=== PATIENT | male | born 1965 | race African-American/Black ===

== ENCOUNTER 2017-01-22 00:39 | Emergency (ER) | payer SELFPAY ==
[~2017-01-22] VITALS: Ht 180.3 cm; Wt 100.0 kg
[2017-01-22 01:26] LABS: AUTOMATED NEUTROPHIL # 6.2 TH/MM3 (1.8-7.7); BASOPHIL # 0.1 TH/MM3 (0-0.2); EOSINOPHIL # 0.2 TH/MM3 (0-0.4); EOSINOPHIL % 1.9 % (0.0-4.0); HEMO FLAGS DIFF FINAL; LYMPH % 29.4 % (9.0-44.0); MEAN CELL VOLUME 85.1 FL (80.0-100.0); MEAN CORPUSCULAR HEMOGLOBIN 28.9 PG (27.0-34.0); MEAN CORPUSCULAR HGB CONC 33.9 % (32.0-36.0); MONO % 7.4 % (0.0-8.0); NEUT % 60.3 % (16.0-70.0); PLATELET COUNT 247 TH/MM3 (150-450); RED BLOOD COUNT 5.05 MIL/MM3 (4.50-5.90); RED CELL DISTRIBUTION WIDTH 13.8 % (11.6-17.2); WHITE BLOOD COUNT 10.3 TH/MM3 (4.0-11.0)
--- NOTE | 2017-01-22 01:35 | PD ---
HPI Chief Complaint: Complaint Time Seen by Provider: 01:11 Travel History International Travel<30 days: No Contact w/Intl Traveler<30days: No Traveled to known affect area: No History of Present Illness HPI The patient is a 51 year old male who presents to the [facility] emergency department with a history of pain in the left side of the abdomen that began 24 hours ago while riding his bike. He reports that the pain was subtle up first. He denies having any history of trauma to the area. He reports that the pain is made worse with palpating the left side of his scrotum. He denies having any scrotal pain or swelling. Today he developed hematuria. He denies dysuria, urinary frequency, or urinary urgency. He denies any history of kidney stones. The patient denies having any new sexual partners or concerns about sexual transmitted infections. He denies having any penile discharge. On review of systems, he denies any recent fevers, neck pain, chest pain, shortness of breath , vomiting, diarrhea, or neurologic symptoms. He has had cold symptoms with cough and congestion for the last 3 days. [facility] Past Medical History Narrative Medical The patient's past medical history is significant for sciatica, hypertension. The patient reports they he stopped taking his blood pressure medication a year ago. Diminished Hearing: No Hypertension: Yes Tetanus Vaccination: Unknown Influenza Vaccination: No Past Surgical History Narrative Surgical The patient's past surgical history is significant for facial surgery for an abscess. Surgical History: No Previous Surgery Social History Alcohol Use: Yes (rare) Tobacco Use: No Substance Use: No Allergies-Medications (Allergen,Severity, Reaction): Coded Allergies: No Known Allergies (Unverified , 01/22/17) Reported Meds & Prescriptions Reported Meds & Active Scripts Active EC-Naprosyn (Naproxen) 500 Mg Tabdr 500 Mg PO BID PRN Cipro (Ciprofloxacin HCl) 500 Mg Tab 500 Mg PO BID 10 Days Review of Systems Except as stated in HPI: all other systems reviewed are Neg General / Constitutional: No: Fever Eyes: No: Visual changes HENT: No: Headaches Cardiovascular: No: Chest Pain or Discomfort Respiratory: No: Shortness of Breath Gastrointestinal: Positive: Abdominal Pain, No: Nausea, Vomiting, Diarrhea, Changes in Bowel Habits, Indigestion, Loss of Appetite Genitourinary: Positive: Hematuria, No: Urgency, Frequency, Dysuria Musculoskeletal: No: Pain Skin: No Rash Neurologic: No: Weakness, Focal Abnormalities, Change in Mentation, Slurred Speech, Sensory Disturbance Psychiatric: No: Depression Endocrine: No: Polydipsia Hematologic/Lymphatic: No: Easy Bruising Physical Exam Narrative General: The patient is a well-developed well-nourished male in no acute distress. Head and Neck exam: Head is normocephalic atraumatic. Eyes: EOMI, pupils are equal round and reactive to light. Nose: Midline septum with pink mucous membranes Mouth: Dentition unremarkable. Moist mucus membranes. Posterior oropharynx is not erythematous. No tonsillar hypertrophy. Uvula midline. Airway patent. Neck: No palpable lymphadenopathy. No nuchal rigidity. No thyromegaly. Cardiovascular: Regular rate and rhythm without murmurs, gallops, or rubs. Lungs: Clear to auscultation bilaterally. No wheezes, rhonchi, or rales. Abdomen: Soft, with tenderness on palpation along the left lower quadrant of the abdomen , no other tenderness on palpation of the other quadrants. No tenderness on palpation of McBurney's point. Normal bowel sounds are audible. No guarding, rebound, or rigidity. Negative Harrison sign. Extremities: No clubbing, cyanosis, or edema. 2+ pulses in all 4 extremities. No calf tenderness on palpation. Back: No spinous process tenderness to palpation. No costovertebral angle tenderness to palpation. Neurologic Exam: Grossly nonfocal. Skin Exam: No rash noted. Intact skin that is warm and dry. Genital exam: The patient is a circumcised male. No genital lesions or rash noted. No scrotal swelling on examination, however the patient does report having tenderness on palpation of the posterior aspect of the left testicle overlying the epididymis. No palpable testicle masses on palpation. No palpable hernia. Data Data Last Documented VS Vital Signs Date Time Temp Pulse Resp B/P Pulse Ox O2 Delivery O2 Flow Rate FiO2 01/22/17 00:43 16 Orders Complete Blood Count With Diff (01/22/17 01:07) Comprehensive Metabolic Panel (01/22/17 01:07) Urinalysis - C+S If Indicated (01/22/17 01:07) Ct Abd/Pel W/O Iv Contrast (01/22/17:17) Lipase (01/22/17 01:07) Sodium Chlor 0.9% 1000 Ml Inj (Ns 1000 M (01/22/17 01:45) Ondansetron Inj (Zofran Inj) (01/22/17 01:45) Ketorolac Inj (Toradol Inj) (01/22/17 01:45) Urine Culture (01/22/17 02:05) Ciprofloxacin 400 Mg Premix (Cipro 400 M (01/22/17 03:15) Ceftriaxone Inj (Rocephin Inj) (01/22/17 03:15) Azithromycin Powd Pack (Zithromax Powd P (01/22/17 03:15) Labs Laboratory Tests Test 01/22/17 01/22/17 00:45 02:05 White Blood Count 10.3 TH/MM3 Red Blood Count 5.05 MIL/MM3 Hemoglobin 14.6 GM/DL Hematocrit 43.0 % Mean Corpuscular Volume 85.1 FL Mean Corpuscular Hemoglobin 28.9 PG Mean Corpuscular Hemoglobin 33.9 % Concent Red Cell Distribution Width 13.8 % Platelet Count 247 TH/MM3 Mean Platelet Volume 8.8 FL Neutrophils (%) (Auto) 60.3 % Lymphocytes (%) (Auto) 29.4 % Monocytes (%) (Auto) 7.4 % Eosinophils (%) (Auto) 1.9 % Basophils (%) (Auto) 1.0 % Neutrophils # (Auto) 6.2 TH/MM3 Lymphocytes # (Auto) 3.0 TH/MM3 Monocytes # (Auto) 0.8 TH/MM3 Eosinophils # (Auto) 0.2 TH/MM3 Basophils # (Auto) 0.1 TH/MM3 CBC Comment DIFF FINAL Differential Comment Sodium Level 138 MEQ/L Potassium Level 3.9 MEQ/L Chloride Level 103 MEQ/L Carbon Dioxide Level 29.7 MEQ/L Anion Gap 5 MEQ/L Blood Urea Nitrogen 15 MG/DL Creatinine 1.11 MG/DL Estimat Glomerular Filtration 85 ML/MIN Rate Random Glucose 87 MG/DL Calcium Level 8.4 MG/DL Total Bilirubin 0.8 MG/DL Aspartate Amino Transf 29 U/L (AST/SGOT) Alanine Aminotransferase 26 U/L (ALT/SGPT) Alkaline Phosphatase 61 U/L Total Protein 7.7 GM/DL Albumin 3.5 GM/DL Lipase 74 U/L Urine Color YELLOW Urine Turbidity HAZY Urine pH 5.5 Urine Specific Herrick 1.015 Urine Protein TRACE mg/dL Urine Glucose (UA) NEG mg/dL Urine Ketones NEG mg/dL Urine Occult Blood MOD Urine Nitrite NEG Urine Bilirubin NEG Urine Urobilinogen LESS THAN 2.0 MG/DL Urine Leukocyte Esterase LARGE Urine RBC 82 /hpf Urine WBC 139 /hpf Urine Squamous Epithelial 1 /hpf Cells Urine Amorphous Sediment RARE Urine Bacteria MOD /hpf Urine Mucus FEW /lpf Urine Sperm RARE Microscopic Urinalysis Comment CULTURE INDICATED MDM Medical Decision Making Medical Screen Exam Complete: Yes Emergency Medical Condition: Yes Medical Record Reviewed: Yes Interpretation(s) Last Impressions Abdomen/Pelvis CT 01/22/17 0117 Signed Impressions: Service Date/Time: Sunday, January 22, 2017 02:00 - CONCLUSION: Essentially unremarkable study. Nitin Bergeron MD Differential Diagnosis Epididymitis, versus orchitis, versus groin strain, versus diverticulitis, versus kidney stone, versus pyelonephritis Narrative Course During the course of the patients emergency department visit, the patients history, examination, and differential diagnosis were reviewed with the patient. The patient had IV access obtained and blood work sent for analysis. The patient was placed on a cafeteria monitor with oximetry and blood pressure monitoring. A CT scan of the abdomen and pelvis to evaluate for possible underlying kidney stone was ordered. The patient was initially provided normal saline 1 L IV fluid bolus, Toradol 15 mg IV, Zofran 4 mg IV. The patients laboratory studies were reviewed and remarkable for a CBC within normal limits, CMP is remarkable for GFR of 85, calcium 8.4, urinalysis shows moderate occult blood, large leukocyte esterase, 82 RBCs, 139 WBCs, moderate bacteria, culture indicated. Radiology studies were reviewed and remarkable for a CT scan of the abdomen and pelvis that shows no acute abnormality. The patient was treated with ciprofloxacin 400 mg IV 1. The patient will be discharged home with Cipro and Naprosyn. The patient was instructed to follow- up with the urologist sometime in the next 3 days. The patient is resting comfortably and feels better, is alert and in no distress. The patients results and examination findings were discussed with the patient. The repeat examination is unremarkable and benign. The history, exam, diagnostic testing, and current condition do not suggest any significant pathology to warrant further testing, continued ED treatment, admission, or surgical evaluation at this point. The vital signs have been stable. The patient does not have uncontrollable pain, intractable vomiting, or other significant symptoms. The patient's condition is stable and appropriate for discharge. The patient will pursue further outpatient evaluation with a primary care physician or other designated or consulting physician as indicated in the discharge instructions. The patient expressed understanding and was agreeable with this plan. Diagnosis Primary Impression: Urinary tract infection Qualified Code: N39.0 - Urinary tract infection with hematuria, site unspecified Additional Impression: Epididymitis Referrals: Noel Khan DO 3 days Patient Instructions: Epididymitis (ED), General Instructions, Urinary Tract Infection in Men (ED) Med/Other Pt SpecificInfo: Prescription(s) given Scripts Naproxen DR (EC-Naprosyn)500 Mg [id number] Mg PO BID PRN (PAIN SCALE 1 TO 10) #10 TAB Ref 0 Prov:Rosa Orozco MD 01/22/17 Ciprofloxacin (Cipro)500 Mg [id number] Mg PO BID 10 Days Ref 0 Prov:Rosa Orozco MD 01/22/17 Disposition: 01 DISCHARGE HOME Condition: Stable Rosa Orozco MD Jan 22, 2017 01:35
[2017-01-22] MEDS ORDERED: SODIUM CHLOR 0.9% 1000 ML INJ 1,000 ML IV ONE (01:45)
[2017-01-22] MEDS ORDERED: ONDANSETRON HCL 4 MG/2 ML VIAL IV ONE (01:45)
[2017-01-22] MEDS ORDERED: KETOROLAC TROMETHAMINE 30 MG/ML (IVP) VIAL IV PUSH ONE (01:45)
[2017-01-22 01:49] LABS: ALT (GPT) 26 U/L (12-78); ANION GAP 5 MEQ/L (5-15); AST (GOT) 29 U/L (15-37); BICARBONATE 29.7 MEQ/L (21.0-32.0); BLOOD UREA NITROGEN 15 MG/DL (7-18); CHLORIDE 103 MEQ/L (98-107); GLOMERULAR FILTRATION RATE 85 ML/MIN (>89); POTASSIUM 3.9 MEQ/L (3.5-5.1); SODIUM (NA) 138 MEQ/L (136-145)
[2017-01-22 01:51] LABS: ALKALINE PHOSPHATASE 61 U/L (45-117); TOTAL BILIRUBIN ADULT 0.8 MG/DL (0.2-1.0)
--- NOTE | 2017-01-22 02:26 | RADRPT ---
EXAM DATE/TIME: 01/22/2017 02:00 [place] COMPARISON: No previous studies available for comparison. INDICATIONS : Lower abdominal pain and hematuria. ORAL CONTRAST: No oral contrast ingested. RADIATION DOSE: 11.34 CTDIvol (mGy) MEDICAL HISTORY : Hypertension. SURGICAL HISTORY : None. ENCOUNTER: Initial ACUITY: 1 day PAIN SCALE: 2/10 LOCATION: Bilateral lower quadrant TECHNIQUE: Volumetric scanning of the abdomen and pelvis was performed. Using automated exposure control and ad justment of the mA and/or kV according to patient size, radiation dose was kept as low as reasonably achievable to obtain optimal diagnostic quality images. FINDINGS: CT Abdomen: The liver, spleen, pancreas, kidneys, adrenals are unremarkable. There is no evidence for any appreciable pathological adenopathy, free fluid, or bowel obstruction. There is no evidence for any stones in the kidneys or the course of the ureters on either side. There is no hydronephrosis. CT pelvis: There is no evidence for mass, abscess formation, or any significant adenopathy within the pelvis. The prostate gland is inhomogeneous and measures 3.3 x 4.9 cm in AP and transverse diameters and nonspecific. There is moderate amount of stool throughout the colon. The appendix appears intact without definite signs of appendicitis. CONCLUSION: Essentially unremarkable study. Nitin Bergeron MD on January 22, 2017 at 2:21 Board Certified Radiologist. This report was verified electronically.
[2017-01-22 02:36] LABS: BACTERIA, URINE MOD /hpf; BLOOD, URINE MOD (NEG); GLUCOSE,URINE NEG (NEG); KETONE, URINE NEG (NEG); MUCUS URINE FEW /lpf (OCC); NITRITE,URINE NEG (NEG); PH, URINE 5.5 (5.0-8.5); SQUAMOUS EPITHELIAL CELL URINE 1 /hpf (0-5); URINE COLOR YELLOW (YELLW/STRAW)
[2017-01-22 02:38] LABS: COMMENT (UR) CULTURE INDICATED; CULTURE IF INDICATED CULTURE INDICATED
[2017-01-22] MEDS ORDERED: cefTRIAXone INJ 1,000 MG in SODIUM CHLORIDE 0.9% INJ 100 ML IV ONE (03:15)
[2017-01-22] MEDS ORDERED: CIPROFLOXACIN 400 MG PREMIX 200 ML IV ONE (03:15)
[2017-01-22] MEDS ORDERED: AZITHROMYCIN PWD FOR SUSP 1 GM PACKET PO ONE (03:15)
[2017-01-22] MEDS ORDERED: CIPR-9 PO (03:41)
[2017-01-22] MEDS ORDERED: EC-N500T PO (03:42)
[2017-01-22 07:14] VITALS: BP 181/85; PULSE 65; RESP 18; TEMP 99.7; O2SAT 99
[2017-01-22] MEDS ORDERED: ACETAMINOPHEN 325 MG TAB PO ONE (07:30)
== END 2017-01-22 07:50 | disposition home or self-care (01) ==
LOC: NEPE 00:39
DX: N39.0 Urinary tract infection, site not specified (principal); N45.1 Epididymitis; B95.2 Enterococcus as the cause of diseases classified elsewhere; I10 Essential (primary) hypertension
CPT/HCPCS: 74176; 80053; 81001; 83690; 85025; 87077; 87086; 87186; 96361; 96365; 96366; 96367; 96375; 99285; J0696; J0744; J1885; J2405; J7030